=== PATIENT | male | born 1970 | race Caucasian/White ===

== ENCOUNTER 2019-04-07 21:18 | Emergency (ER) | payer MEDICAID ==
[~2019-04-07] VITALS: Ht 180.3 cm; Wt 70.3 kg
[~2019-04-07 21:18] MED LIST: CYCL5TAB11; LORA-259; OXYC-133 PO; OXYC5CAP18
[2019-04-07 21:30] VITALS: BP 140/76
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
--- NOTE | 2019-04-07 21:39 | NUR ---
[facility] AT BEDSIDE
--- NOTE | 2019-04-07 23:25 | NUR ---
DCPatient discharged to home in stable condition. Written and verbal after care instructions given. Patient verbalizes understanding of instruction. PT AMBULATORY WITH STEADY GAIT.
== END 2019-04-07 23:26 | disposition home or self-care (01) ==
LOC: ER 21:18
DX: S90.32XA Contusion of left foot, initial encounter (principal); S90.122A Contusion of left lesser toe(s) without damage to nail, initial encounter; T23.172A Burn of first degree of left wrist, initial encounter; T23.171A Burn of first degree of right wrist, initial encounter; S09.8XXA Other specified injuries of head, initial encounter; Z60.2 Problems related to living alone; Z79.899 Other long term (current) drug therapy; V49.49XA Driver injured in collision with other motor vehicles in traffic accident, initial encounter; W22.11XA Striking against or struck by driver side automobile airbag, initial encounter; Y93.89 Activity, other specified; Y92.413 State road as the place of occurrence of the external cause; Y99.8 Other external cause status
CPT/HCPCS: 70450-TC; 73630-TC